=== PATIENT | female | born 1990 | race Caucasian/White ===

== ENCOUNTER 2017-10-23 18:27 | Emergency (ER) | END 2017-10-23 21:38 | disposition home or self-care (01) ==

== ENCOUNTER → 2020-01-09 | Outpatient (CLI) | payer OTHER ==
[~2020-01-09] MED LIST: ALBU90I INH; ALBU90OI; ALBU90OI INH; AMOX875 PO; BELPTAB PO; CODACE30 PO; DIPATR PO; ESCI10 PO; ESCI20; HYDACE25S PR; HYDACE5 PO; MULVITMINE PO; NUVARING; SERT25 PO
[2020-01-09 16:00] LABS: Progesterone 12.8 ng/mL
== END | disposition home or self-care (01) ==
LOC: LAB SHORT 13:11 → LAB 13:11
PROVIDERS: Obstetrics & Gynecology
DX: Z34.81 Encounter for supervision of other normal pregnancy, first trimester (principal)
CPT/HCPCS: 84144; 84702

== ENCOUNTER 2020-03-07 15:52 | Emergency (ER) | payer OTHER ==
[~2020-03-07] VITALS: Ht 165.1 cm; Wt 63.0 kg
[2020-03-07] MEDS ORDERED: LEVSOD25 PO (17:48)
[2020-03-07] MEDS ORDERED: VITAMIN B-625 M1 (17:49)
== END 2020-03-07 17:55 | disposition home or self-care (01) ==
LOC: ER 15:52
DX: O9A.212 Injury, poisoning and certain other consequences of external causes complicating pregnancy, second trimester (principal); S09.90XA Unspecified injury of head, initial encounter; Z88.1 Allergy status to other antibiotic agents; Z79.899 Other long term (current) drug therapy; Z3A.14 14 weeks gestation of pregnancy; W11.XXXA Fall on and from ladder, initial encounter
CPT/HCPCS: 76815; 99284-25

== ENCOUNTER → 2020-08-25 | Outpatient (CLI) | payer OTHER ==
[~2020-08-25] MED LIST changes: +ACYC200 PO; +LEVSOD25 PO; +PRENATAL TABLE1 EAC2 PO; +VITAMIN B-625 M1
== END | disposition home or self-care (01) ==
LOC: LAB SHORT 16:28
DX: R82.90 Unspecified abnormal findings in urine (principal)
CPT/HCPCS: 87086

== ENCOUNTER 2020-09-07 15:08 | Inpatient (IN) | payer OTHER ==
[~2020-09-07] VITALS: Ht 165.1 cm; Wt 79.0 kg
[~2020-09-07 15:08] MED LIST changes: -ACYC200 PO; -PRENATAL TABLE1 EAC2 PO
[2020-09-07] MEDS ORDERED: PRENATAL TABLE1 EAC2 PO (15:38)
[2020-09-07] MEDS ORDERED: ACYC200 PO (15:38)
[2020-09-07 16:00] LABS: BASOPHILS ABSOLUTE AUTO 0.03 K/mm3 (0.00-0.23); BASOPHILS PERCENT AUTO 0 % (0-2); EOSINOPHILS ABSOLUTE AUTO 0.06 K/mm3 (0.00-0.68); EOSINOPHILS PERCENT AUTO 1 % (0-6); Hematocrit 37.1 % (33.0-51.0); Hemoglobin 11.9 g/dL (11.5-16.0); IMMATURE GRAN ABSOLUTE AUTO 0.05 K/mm3 (0.00-0.10); IMMATURE GRAN PERCENT AUTO 0 % (0-1); LYMPHOCYTES ABSOLUTE AUTO 2.68 K/mm3 (0.84-5.20); LYMPHOCYTES PERCENT AUTO 22 % (21-46); MONOCYTES PERCENT AUTO 6 % (4-13); Mean Corpuscular HGB 27.7 pg (26.0-34.0); Mean Corpuscular HGB Conc 32.1 g/dL (31.5-36.5); Mean Corpuscular Volume 86 fL (80-100); NEUTROPHILS ABSOLUTE AUTO 8.59 K/mm3 (1.96-9.15); NEUTROPHILS PERCENT AUTO 71 % (41-73); Platelet Count 285 K/mm3 (150-400); RDW Coefficient Variation 13.3 % (11.7-14.2); RDW Standard Deviation 41.1 fL (35.1-46.3); White Blood Cell Count 12.11 K/mm3 (4.00-11.30)
[2020-09-07 16:11] LABS: Influenza A, PCR Negative (NEGATIVE); Influenza B, PCR Negative (NEGATIVE); Resp Syncytial Virus, PCR Negative (NEGATIVE); SARS-Cov-2 (COVID-19) PCR, MMC Negative (NEGATIVE)
--- NOTE | 2020-09-07 19:38 | NUR ---
~1855 -RT arrived to meconium delivery. -Baby already born on mom's chest with strong wet cry. -After 1min, RT excused per .
--- NOTE | 2020-09-07 23:07 | NUR ---
PT AMBULATED TO BATHROOM WITH STANDBY ASSIST ONLY, 1ST VOID SINCE DELIVERY, PT TOLERATED SHOWER WELL
[2020-09-08 05:04] LABS: BASOPHILS ABSOLUTE AUTO 0.04 K/mm3 (0.00-0.23); BASOPHILS PERCENT AUTO 0 % (0-2); EOSINOPHILS ABSOLUTE AUTO 0.06 K/mm3 (0.00-0.68); EOSINOPHILS PERCENT AUTO 0 % (0-6); Hematocrit 33.7 % (33.0-51.0); Hemoglobin 10.6 g/dL (11.5-16.0); IMMATURE GRAN ABSOLUTE AUTO 0.05 K/mm3 (0.00-0.10); IMMATURE GRAN PERCENT AUTO 0 % (0-1); LYMPHOCYTES ABSOLUTE AUTO 2.38 K/mm3 (0.84-5.20); LYMPHOCYTES PERCENT AUTO 17 % (21-46); MONOCYTES PERCENT AUTO 7 % (4-13); Mean Corpuscular HGB 27.6 pg (26.0-34.0); Mean Corpuscular HGB Conc 31.5 g/dL (31.5-36.5); Mean Corpuscular Volume 88 fL (80-100); Mean Platelet Volume 10.5 fL (9.1-12.4); NEUTROPHILS ABSOLUTE AUTO 10.88 K/mm3 (1.96-9.15); NEUTROPHILS PERCENT AUTO 76 % (41-73); Platelet Count 262 K/mm3 (150-400); RDW Coefficient Variation 13.3 % (11.7-14.2); RDW Standard Deviation 41.9 fL (35.1-46.3); Red Blood Cell Count 3.84 M/mm3 (3.80-5.20); White Blood Cell Count 14.41 K/mm3 (4.00-11.30)
--- NOTE | 2020-09-08 06:52 | NUR ---
STABLE PATIENT, CARING FOR SELF AND NB WELL, BREAST FEEDING NB WELL, REPT TO ON COMING SHIFT
--- NOTE | 2020-09-08 14:39 | NUR ---
PERMISSION TO PROVIDE CARE STUDENT NURSE FRANCISCO LUKE RECEIVED PERMISSION TO PROVIDE CARE
--- NOTE | 2020-09-08 19:21 | NUR ---
ASSUMED CARE, PATIENT PACKED UP WAITING FOR RIDE, STATES BABY BREAST FEEDING WELL, CARING FOR SELF AND NB INDEPENDENTLY DENIES NEED FOR PAIN, FUNDUS FIRM W/ SCANT LOCHIA, SOIDING W/O DIFFICULTY
--- NOTE | 2020-09-08 19:40 | NUR ---
DIACHARGE TO HOME WITH RACHNA
== END 2020-09-08 19:40 | disposition home or self-care (01) | DRG 807 ==
LOC: BC 15:08 → OBS 15:47 → NUR 15:50 → BC 20:16
PROVIDERS: ADMIT Obstetrics & Gynecology
PROC: 10E0XZZ Delivery of Products of Conception, External Approach (ICD-10-PCS; principal; 2020-09-07)
PROC: 3E0R3BZ Introduction of Anesthetic Agent into Spinal Canal, Percutaneous Approach (ICD-10-PCS; 2020-09-07)
PROC: 00HU33Z Insertion of Infusion Device into Spinal Canal, Percutaneous Approach (ICD-10-PCS; 2020-09-07)
DX: O77.0 Labor and delivery complicated by meconium in amniotic fluid (principal); Z37.0 Single live birth; Z3A.39 39 weeks gestation of pregnancy; Z20.828 Contact with and (suspected) exposure to other viral communicable diseases
CPT/HCPCS: 0241U; 36415; 51702; 85025; 86850; 86900; 86901; A9270; J1885; J2001; J2210; J2590; J3010; J7120

== ENCOUNTER 2023-05-05 10:31 | Day surgery (SDC) | payer OTHER ==
[~2023-05-05] VITALS: Ht 164 cm; Wt 57.2 kg
[2023-05-05] VITALS (10 sets, daily range): BP systolic 85–109; BP diastolic 46–67
[~2023-05-05 10:31] MED LIST changes: +ACYC200 PO; +ACYCLOVIR400 MG PO; +ALBU8HFA2 INH; +MICROGESTIN 211 EACH PO; +ONDA4ODT MM; +PRENATAL TABLE1 EAC2 PO
--- NOTE | 2023-05-05 11:45 | NUR ---
History, Chart, Medications and Allergies reviewed before start of procedure. Ambulatory in Day Surgery. Pre-Op teaching done. Pt verbalizes understanding. Patient confirms NPO status and agrees with scheduled surgery. Patient reports completing Chlorhexadine shower X2 prior to admission to hospital. Surgical site prepped with 2% Chlorhexidine cloth wipe. Lungs clear T/O to Auscultation. Patient States Post-Procedure ride home has been arranged.
--- NOTE | 2023-05-05 13:05 | NUR ---
PT TO DAY SURGERY FOR RECOVERY, REPORT RECEIVED FROM CLEOPATRA LEW. PT AWAKE AND ALERT. PO FLUIDS GIVEN. DENIES PAIN, BUT HAS SOME ABD CRAMPS. PT HAS 2 INCISIONS THAT HAVE SKIN ADHESIVE GLUE ON AND ARE C/D/I. PT HAS URBAN PAD ON THAT IS DRY.
--- NOTE | 2023-05-05 13:15 | NUR ---
NO CHANGE IN INCISIONS, C/D/I
--- NOTE | 2023-05-05 13:19 | NUR ---
PT UP TO VOID, UPON GETTING OUT OF BED, SMALL AMOUNT OF BLOOD ON BACK OF URBAN PAD AND VALERO PAD. PT UP TO BATHROOM, AMBULATING WELL. ABLE TO VOID. SMALL AMOUNT OF LOCHIA ON TOILET PAPER WITH WIPING. PT STATES ABD CRAMPING HAS IMPROVED.
--- NOTE | 2023-05-05 13:50 | NUR ---
NO CHANGE IN INCISIONS, C/D/I. URBAN PAD HAS SMALL AMOUNT OF LOCHIA. PT TO GET UP TO GET DRESSED, NEW URBAN PAD GIVEN.
--- NOTE | 2023-05-05 13:52 | NUR ---
Patient up to Ambulate independently. Gait steady. Discharge instructions reviewed with patient. Patient verbalizes understanding. Copy given to patient to take home. Patient States Post-Procedure ride home has been arranged. Discharged via wheelchair to private car for ride home.
--- NOTE | 2023-05-06 08:59 | NUR ---
05/06/23 0859 Shannan Whyte VERIFICATIONS: EDIT CHART.
== END 2023-05-05 13:57 | disposition home or self-care (01) ==
LOC: ORSCMMR 10:31 → ORD 11:30 → ORSCMMR 13:57
PROVIDERS: Obstetrics & Gynecology
PROC: 0UT7FZZ Resection of Bilateral Fallopian Tubes, Via Natural or Artificial Opening With Percutaneous Endoscopic Assistance (ICD-10-PCS; principal; 2023-05-05 11:30)
DX: Z30.2 Encounter for sterilization (principal); J45.909 Unspecified asthma, uncomplicated
CPT/HCPCS: 88302; A9270; J0330; J1100; J1885; J2250; J2405; J2704; J3010; J7120